=== PATIENT | female | born 1980 | race Caucasian/White ===

== ENCOUNTER 2019-12-28 08:37 | Outpatient (CLI) | payer BC, SELFPAY ==
--- NOTE | 2019-12-28 08:58 | FL_ITS ---
WS: [id number] DOUBLE CONTRAST UPPER GI EXAMINATION HISTORY: DYSPHAGIA COMPARISON: None available. FLUOROSCOPY TIME: 2.5 minutes. Lead Burner Apprentice film reveals normal distribution of gas throughout the GI tract. No suspicious masses or calcif ications. Barium mixture traversed normally throughout the esophagus. No filling defects within the stomach. Du odenal bulb was normally distensible and pliable. Moderate amount of gastroesophageal reflux was noted to the renzo. Small hiatal hernia was reducible. FL/[place] upper GI [place] air [id number] IMPRESSION: 1. Gastroesophageal reflux to the renzo. 2. Small reducible hiatal hernia.
== END 2019-12-28 08:38 | disposition home or self-care (01) ==
PROVIDERS: Family Provider Nurse Practitioner; PCP Nurse Practitioner; Visit Provider Surgery
DX: K21.9 Gastro-esophageal reflux disease without esophagitis (principal); K44.9 Diaphragmatic hernia without obstruction or gangrene; R13.10 Dysphagia, unspecified
CPT/HCPCS: 74246

== ENCOUNTER 2020-01-17 08:29 | Day surgery (SDC) | payer BC, SELFPAY ==
[2020-01-17 09:12] VITALS: BP 129/85; PULSE 61; RESP 16; TEMP 36.6; O2SAT 100
[2020-01-17] MEDS: sodium chloride 0.9% 1,000 ML 30 ML (09:18)
--- NOTE | 2020-01-17 09:20 | W.PM.OPSUD ---
Surgery/Procedure H&P Update DATE OF PROCEDURE: January 17, 2020 DATE H&P PERFORMED: 01/04/20 H&P UPDATE INFORMATION: I have reviewed H&P completed within last 30 days, I have examined patient prior to procedure and No changes to prior documentation PREOP DIAGNOSIS: Persistent GERD PRIMARY INDICATION FOR PROCEDURE: The same PLANNED PROCEDURE: Operation Date: 01/17/20 10:00 Proposed Procedures p EGD(Not Applicable) - Jarad Chawla MD
--- NOTE | 2020-01-17 11:05 | P.ANESASSM_ITS ---
Pre-Anesthetic Assessment Pre-Anesthetic Assessment: Height/Weight: Height 1.63 m Weight 79.379 kg Temp Pulse Resp BP Pulse Ox 97.9 F 61 16 129/85 100 01/17/20 09:12 01/17/20 09:12 01/17/20 09:12 01/17/20 09:12 01/17/20 09:12 Preop Diagnosis: Persistent GERD Proposed Procedure: Operation Date: 01/17/20 10:00 Proposed Procedures p EGD(Not Applicable) - Jarad Chawla MD Was Beta Ty taken within 24 hours: N/A Last intake: Intake Last Liquid Date 01/16/20 Last Liquid Time 21:00 Last Solid Date 01/16/20 Last Solid Time 18:00 Last Intake: 21:00 Social: Social History: No alcohol and No tobacco Exam: Pre-Anes Outpt Exam: alert, oriented x 3, clear to auscultation bilaterally and regular rate & rhythm Airway: Submandibular: WNL Cervical ROM: WNL MP: 2 Dentition: Full Pulmonary: Pulmonary: None reported CV/HEM: CV/HEM: None reported : : None reported Hepatic: Hepatic: None reported GI: GI: GERD Metabolic: Metabolic: None reported Musc/skel: Musc/skel: None reported Neuropsych: Neuropsych: None reported Anesthetic Plan: ASA status: 1 Anesthesia: Anesthesia Evaluation and MAC Risk of > 500 ml blood loss (7ml/kg in children): No PFSH Anesthesia PFSH: Social History Smoking and tobacco status: never smoked Second hand smoke exposure: No Alcohol intake: never Adopted: No Caregiver/support person: Yes Lives independently: Yes Household members: spouse Housing: House Marital status: Number of children: 0 Highest education level completed: High School Graduate service: No Current occupational status: employed 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
[2020-01-17 11:22] LABS: OR HCG Qualitative Urine Negative (Negative)
[2020-01-17 12:25] VITALS: BP 107/75; PULSE 90; RESP 16; TEMP 36.4; O2SAT 98
--- NOTE | 2020-01-17 12:28 | ANE.PACU2 ---
 Inpatient post-anesthesia follow up: Airway intact: Yes Vital signs: Temperature 97.9 F Pulse Rate 61 Respiratory Rate 16 Blood Pressure 129/85 Pulse Oximetry 100 Oxygen Delivery Me thod Room Air Oxygen Flow Rate Fraction of Inspir ed Oxygen Hydration adequate: Yes Nausea and vomiting: No Pain level: 1 Mental status: Baseline
[2020-01-17 12:40] VITALS: BP 117/77; PULSE 63; RESP 18; O2SAT 97
[2020-01-18 05:38] LABS: H. Pylori / CLO Test Negative
== END 2020-01-17 12:54 | disposition home or self-care (01) ==
PROVIDERS: Family Provider Nurse Practitioner; PCP Nurse Practitioner; Visit Provider Surgery
PROC: 0DJ08ZZ Inspection of Upper Intestinal Tract, Via Natural or Artificial Opening Endoscopic (ICD-10-PCS; CPT 43235; principal; 2020-01-17 10:00)
DX: K21.9 Gastro-esophageal reflux disease without esophagitis (principal); K44.9 Diaphragmatic hernia without obstruction or gangrene; K29.70 Gastritis, unspecified, without bleeding; E66.01 Morbid (severe) obesity due to excess calories; Z68.30 Body mass index [BMI] 30.0-30.9, adult; E78.5 Hyperlipidemia, unspecified
CPT/HCPCS: 12345; 43239; 81025; 84703; 87077; J2704; J7030

== ENCOUNTER → 2020-02-06 14:25 | Outpatient (BNVA) | payer BC, SELFPAY | PROVIDERS: Family Provider Nurse Practitioner; PCP Nurse Practitioner; Visit Provider Nurse Practitioner Women's Health | DX: E28.2 Polycystic ovarian syndrome (principal) | CPT/HCPCS: 84702 ==

== ENCOUNTER → 2020-05-07 08:35 | Outpatient (BNVA) | payer BC, SELFPAY | PROVIDERS: Family Provider Nurse Practitioner; PCP Nurse Practitioner; Visit Provider Nurse Practitioner Women's Health | DX: E28.2 Polycystic ovarian syndrome (principal) | CPT/HCPCS: 81025; 88175 ==

== ENCOUNTER → 2020-12-02 16:07 | Outpatient (BNVA) | payer BC, SELFPAY | PROVIDERS: Family Provider Nurse Practitioner; PCP Nurse Practitioner; Visit Provider Nurse Practitioner Family | DX: Z20.828 Contact with and (suspected) exposure to other viral communicable diseases (principal); J06.9 Acute upper respiratory infection, unspecified | CPT/HCPCS: 87635 ==

== ENCOUNTER → 2021-06-25 15:19 | Outpatient (BNVA) | payer SELFPAY | PROVIDERS: Family Provider Nurse Practitioner; PCP Nurse Practitioner; Visit Provider Nurse Practitioner Women's Health | DX: Z01.419 Encounter for gynecological examination (general) (routine) without abnormal findings (principal); Z12.39 Encounter for other screening for malignant neoplasm of breast; E28.2 Polycystic ovarian syndrome | CPT/HCPCS: 88175 ==

== ENCOUNTER 2021-08-08 07:36 | Outpatient (CLI) | payer BC, SELFPAY ==
--- NOTE | 2021-08-08 08:00 | MM_ITS ---
WS: [id number] BILATERAL SCREENING DIGITAL MAMMOGRAM WITH CAD HISTORY: Z12.39 - Encounter for other screening for malignant neoplasm... COMPARISON: None available. Bilateral CC and MLO views submitted. Computer aided detection analyzed. Breast composition: There are scattered areas of fibroglandular density. No suspicious masses, microc alcifications or architectural distortion. MM/[place] [id number] IMPRESSION: BI-RADS: 1-Negative FOLLOW UP: 1 Year Follow-up
== END 2021-08-08 07:37 | disposition home or self-care (01) ==
LOC: RADSHAW 07:42
PROVIDERS: Visit Provider Nurse Practitioner Women's Health
DX: Z12.31 Encounter for screening mammogram for malignant neoplasm of breast (principal)
CPT/HCPCS: 77067

== ENCOUNTER 2022-08-12 09:00 | Outpatient (CLI) | payer OTHER, SELFPAY ==
--- NOTE | 2022-08-12 09:21 | MM_ITS ---
WS: [id number] BILATERAL SCREENING DIGITAL TOMOSYNTHESIS MAMMOGRAM WITH CAD HISTORY: Screening. COMPARISON: 08/08/2021 Bilateral CC and MLO views with tomosynthesis and synthetic mammography submitted. Computer aided det ection analyzed. Breast composition: There are scattered areas of fibroglandular density. No suspicious masses, microc alcifications or architectural distortion. Curvilinear asymmetry in the anterior medial LEFT breast j ust below the nipple line is reidentified. No interval change. MM/[place] [id number] IMPRESSION: BI-RADS: 2-Benign FOLLOW UP: 1 Year Follow-up
== END 2022-08-12 09:01 | disposition home or self-care (01) ==
LOC: RAD 09:00
PROVIDERS: Visit Provider Nurse Practitioner Women's Health
DX: Z12.31 Encounter for screening mammogram for malignant neoplasm of breast (principal)
CPT/HCPCS: 77063; 77067

== ENCOUNTER → 2022-11-18 09:24 | Outpatient (BNVA) | payer OTHER, SELFPAY | PROVIDERS: Visit Provider Family Medicine | DX: Z00.00 Encounter for general adult medical examination without abnormal findings (principal) | CPT/HCPCS: 80053; 80061; 85025 ==

== ENCOUNTER 2023-01-22 12:05 | Emergency (ER) | payer OTHER, SELFPAY ==
[2023-01-22 12:10] VITALS: BMI 43.4
[2023-01-22 12:16] VITALS: BP 140/84; PULSE 70; RESP 18; TEMP 36.8; O2SAT 98
--- NOTE | 2023-01-22 12:37 | ECG_ITS ---
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 Measurements Intervals [place] Rate: 66 P: 43 AR: 139 QRS: 84 QRSD: 86 T: 50 QT: 410 QTc: 431 Interpretive Statements SINUS RHYTHM WITH SINUS ARRHYTHMIA LOW QRS VOLTAGE IN PRECORDIAL LEADS [QRS DEFLECTION < 1.0 mV IN CHEST LEADS] No previous ECG available for comparison Electronically Signed On 01-22-2023 16:50:01 [employer] by Russell Sierra M.D. [id number]
--- NOTE | 2023-01-22 12:37 | CT_ITS ---
WS: [id number] CT HEAD TECHNIQUE: Noncontrast CT of the head obtained from the skullbase to the vertex. CLINICAL INFORMATION: Symptoms of acute stroke COMPARISON: None. DLP: [id number] scans at [facility] use at least one of these dose optimization techniques: automated e xposure control; mA and/or kV adjustment per patient size (includes targeted exams where dose is matc hed to clinical indication); or iterative reconstruction. FINDINGS: No evidence of intracranial hemorrhage or mass effect. Ventricular system and basal cisterns are hyde nt. No extra-axial fluid collections. No evidence of mass or mass effect. Normal flores-white different iation. Paranasal sinuses and mastoid air cells are well aerated. .Normal visualized soft tissues. CT/CT head thrombolytic [id number] IMPRESSION: 1. No evidence of intracranial hemorrhage or mass effect. 2. No acute intracranial findings.
[2023-01-22 12:51] LABS: Basophils % 0.5 %; Eosinophils # 0.2 10^3/uL (0.0-0.8); Hematocrit 39.2 % (37.0-47.0); Hemoglobin 12.6 g/dL (11.5-15.3); Lymphocytes # 3.2 10^3/uL (0.8-4.8); Lymphocytes % 37.2 %; Mean Corpuscular HGB Conc 32.1 g/dL (30.0-36.0); Mean Corpuscular Hemoglobin 29.2 pg (28.0-34.0); Mean Corpuscular Volume 90.7 fl (81-99); Mean Platelet Volume 9.5 fL (7.4-10.4); Monocytes # 0.6 10^3/uL (0.2-0.9); Monocytes % 6.8 %; Neutrophils # 4.58 10^3/uL (1.8-7.7); Neutrophils % 53.3 %; Nucleated Red Blood Cells % 0 %; Platelet Count 341 10^3/cmm (130-400); Red Blood Count 4.32 10^6/uL (4.1-5.3); Red Cell Distribution Width 12.5 % (12.1-15.1); White Blood Count 8.6 10^3/uL (4.0-10.0)
[2023-01-22 12:58] LABS: INR 0.89 (0.8-1.2)
[2023-01-22 13:00] LABS: Alanine Aminotransferase 21 U/L (0-33); Albumin Level 4.2 g/dL (3.5-5.2); Alkaline Phosphatase 77 U/L (35-105); Blood Urea Nitrogen 9 mg/dL (6-20); Carbon Dioxide 23 mmol/L (22-29); Chloride 101 mmol/L (98-107); Glomerular Filtration Rate 90.9 mL/min (90-130); Glucose 90 mg/dL (65-115); Osmolality Calculated 278 mOsm/kg (285-295); Sodium 135 mmol/L (136-145); Total Bilirubin 0.2 mg/dL (0.15-1.2); Total Protein 7.2 g/dL (6.6-8.7)
[2023-01-22 13:16] VITALS: BP 165/106; PULSE 82; RESP 20; O2SAT 100
[2023-01-22 13:20] LABS: Glucose Point of Care 78 mg/dL (70-110)
[2023-01-22 13:25] LABS: Anion Gap 15.2 (5-19); Aspartate Amino Transferase 22 U/L (0-32); Potassium 4.2 mmol/L (3.5-5.1)
--- NOTE | 2023-01-22 13:29 | W.ED.NEUROSD ---
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 She has facial numbness as well no other difficulty no difficulty speech gait or swallowing or vision. No weakness in the arms hands feet. Onset (ago): minute(s) Location: left face History of same: Yes Severity: mild Quality: numb Relieving factors: none Exacerbating factors: none Associated symptoms: Deny chest pain, cough, diaphoresis, fevers/chills, headache(s), anorexia, malaise, nausea, seizures, short of breath, syncope, tingling, vertigo, vomiting or weakness Treatments Prior to Arrival: none Review of Systems Const: Denies: fever(s), chills, fatigue, malaise or diaphoresis ENMT: Denies: throat pain, ear or mastoid pain, nasal discharge or nasal congestion Card: Denies: chest pain or syncope Resp: Denies: dyspnea, productive cough or non-productive cough GI: Denies: abdominal pain, nausea or vomiting : Denies: flank pain, difficulty voiding, dysuria, urinary frequency or urinary urgency Skin/Breast: Denies: rash or pruritus Neuro: Denies: headache(s) or vertigo PFS ED PFSH: Medical History GERD (gastroesophageal reflux disease) Hiatal hernia Morbid obesity PCOS (polycystic ovarian syndrome) Sleep apnea Surgical History History of esophagogastroduodenoscopy (EGD) Family History Grandfather Heart disease Paternal Cancer paternal- lung/esophageal Grandmother Stroke Paternal Diabetes Maternal Mother Hypertension Denies family history of Colon cancer Ovarian cancer Hyperlipidemia Breast cancer Uterine cancer Thyroid disease Social History Smoking and tobacco status: never smoked Alcohol intake: never Lives independently: Yes Household members: children Marital status: Single Current occupational status: employed 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 [employer] NIH stroke score NIHSS: Level Of Consciousness - 1a: 0 Level Of Consciousness Questions - 1b: Both Correct Level Of Consciousness Commands - 1c: Both Correct Best Gaze - 2: Normal Visual [place] - 3: No Visual Loss Facial Palsy - 4: Normal Motor Arm Right - 5: No Drift Motor Arm Left - 5: No Drift Motor Leg Right - 6: No Drift Motor Leg Left - 6: No Drift Limb Ataxia - 7: Absent Sensory - 8: Normal Best Language - 9: No Aphasia Dysarthia - 10: Normal Extinction And Inattention - 11: 0 Score: Total Score: 0 Physical Exam Const: GENERAL APPEARANCE: cooperative and comfortable ORIENTATION/CONSCIOUSNESS: Yes awake, Yes oriented to person, Yes oriented to place and Yes oriented to time HENMT: COMMON NORMALS: normocephalic, atraumatic and hearing grossly normal bilaterally HEAD & SCALP: normocephalic and atraumatic Resp: COMMON NORMALS: normal respiratory effort, No retractions, No use of accessory muscles and clear to auscultation bilaterally AUSCULTATION: clear to auscultation bilaterally Cardio: COMMON NORMALS: regular rate, regular rhythm and No murmurs present (Cardio) RATE: regular rate RHYTHM: regular rhythm GI: COMMON NORMALS: Soft to palpation and No hepatosplenomegaly present AUSCULTATION: Yes normoactive bowel sounds PALPATION: Yes Soft to palpation, No Tenderness to palpation present (GI), No Guarding due to palpation present (GI) and Yes No hepatosplenomegaly present Extremity: COMMON NORMALS: normal to inspection, capillary refill normal, no clubbing, cyanosis or edema, no calf tenderness and no pedal edema Neuro: SENSORIUM/ORIENTATION: Yes oriented to person, Yes oriented to place and Yes oriented to time Skin: COMMON NORMALS: no rashes or lesions noted GENERAL SKIN EXAM: no rashes or lesions noted Course Vital Signs: Vital signs: Vital Signs Temperature 98.2 F 01/22/23 12:16 Pulse Rate 75 01/22/23 15:10 Respiratory Rate 15 01/22/23 15:10 Blood Pressure 137/84 01/22/23 15:10 Pulse Oximetry 98 01/22/23 15:10 Oxygen Delivery Me thod 01/22/23 12:16 MDM - Neuro Symptoms/Deficit Medical Decision Making Patient has no focal neurologic deficits even when I test her for light touch or sharp touch on her face she only has a minor difference in it only in the face on the left side she has no other signs suggestive of a Gunn's palsy, or other facial nerve neuropathy. Discharge patient home follow-up with primary care if symptoms worsen or change return. Medical Records I reviewed the patient's medical records. Lab Data I reviewed the patient's lab results. 01/22/23 12:29 01/22/23 12:[address] 01/22/23 12:37 IMPRESSION: 1. No evidence of intracranial hemorrhage or mass effect. 2. No acute intracranial findings. Laboratory Results WBC 8.6 10^3/uL (4.0-10.0) 01/22/23 12:29 RBC 4.32 10^6/uL (4.1-5.3) 01/22/23 12:29 Hgb 12.6 g/dL (11.5-15.3) 01/22/23 12:29 Hct 39.2 % (37.0-47.0) 01/22/23 12: MCV 90.7 fl (81-99) 01/22/23 12: MCH 29.2 pg (28.0-34.0) 01/22/23 12: MCHC 32.1 g/dL (30.0-36.0) 01/22/23 12:29 RDW 12.5 % (12.1-15.1) 01/22/23 12:29 Plt Count 341 10^3/cmm (130-400) 01/22/23 12: MPV 9.5 fL (7.4-10.4) 01/22/23 12: Neut % (Auto) 53.3 % 01/22/23 12: Lymph % (Auto) 37.2 % 01/22/23 12: [place] % (Auto) 6.8 % 01/22/23 12: Eos % (Auto) 2.0 % 01/22/23 12:29 Baso % (Auto) 0.5 % 01/22/23 12: Neut # (Auto) 4.58 10^3/uL (1.8-7.7) 01/22/23 12: Lymph # (Auto) 3.2 10^3/uL (0.8-4.8) 01/22/23 12: [place] # (Auto) 0.6 10^3/uL (0.2-0.9) 01/22/23 12: Eos # (Auto) 0.2 10^3/uL (0.0-0.8) 01/22/23 12: Baso # (Auto) 0.0 10^3/uL (0.0-0.1) 01/22/23 12: Nucleated RBC % (auto) 0 % 01/22/23 12: Nucleated RBCs # 0.0 /100WBC 01/22/23 12: PT 12.30 SECONDS (12.1-14.9) 01/22/23 12: INR 0.89 (0.8-1.2) 01/22/23 12: APTT 25.0 SECONDS (23.9-36.7) 01/22/23 12: Sodium 135 mmol/L (136-145) L 01/22/23 12: Potassium 4.2 mmol/L (3.5-5.1) 01/22/23 12: Chloride 101 mmol/L (98-107) 01/22/23 12: Carbon Dioxide 23 mmol/L (22-29) 01/22/23 12: Anion Gap 15.2 (5-19) 01/22/23 12: BUN 9 mg/dL (6-20) 01/22/23 12: Creatinine 0.7 mg/dL (0.5-0.9) 01/22/23 12: GFR Calculation 90.9 mL/min (90-130) 01/22/23 12:29 Glucose 90 mg/dL (65-115) 01/22/23 12: POC Glucose 78 mg/dL (70-110) 01/22/23 13:16 Calculated Osmolality 278 mOsm/kg (285-295) L 01/22/23 12:29 Calcium 9.0 mg/dL (8.5-10.5) 01/22/23 12:29 Total Bilirubin 0.2 mg/dL (0.15-1.2) 01/22/23 12:29 AST 22 U/L (0-32) 01/22/23 12:29 ALT 21 U/L (0-33) 01/22/23 12:29 Alkaline Phosphatase 77 U/L (35-105) 01/22/23 12:29 Total Protein 7.2 g/dL (6.6-8.7) 01/22/23 12:29 Albumin 4.2 g/dL (3.5-5.2) 01/22/23 12:29 Globulin 3.0 g/dL (1.3-4.6) 01/22/23 12:29 Urine Color Straw (Yellow) 01/22/23 13:30 Urine Appearance Clear (CLEAR) 01/22/23 13:30 Urine pH 6.5 (5-7) 01/22/23 13:30 Ur Specific [place] 1.010 (1.005-1.030) 01/22/23 13:30 Urine Protein Neg (Negative) 01/22/23 13:30 Urine Glucose (UA) Norm (Normal) 01/22/23 13:30 Urine Ketones Negative (Negative) 01/22/23 13:30 Urine Blood Neg (Negative) 01/22/23 13:30 Urine Nitrate Negative (Negative) 01/22/23 13:30 Urine Bilirubin Neg (Negative) 01/22/23 13:30 Urine Urobilinogen Norm mg/dL (Negative) 01/22/23 13:30 Ur Leukocyte Esterase Negative (Negative) 01/22/23 13:30 Urine Opiates Screen Negative ng/mL (Negative) 01/22/23 13:30 Ur Barbiturates Screen Negative ng/mL (Negative) 01/22/23 13:30 Ur Phencyclidine Scrn Negative ng/mL (Negative) 01/22/23 13:30 Ur Amphetamines Screen Negative ng/mL (Negative) 01/22/23 13:30 U Benzodiazepines Scrn Negative ng/mL (Negative) 01/22/23 13:30 Urine Cocaine Screen Negative ng/mL (Negative) 01/22/23 13:30 U Marijuana (THC) Screen Negative ng/mL (Negative) 01/22/23 13:30 Discharge Plan Discharge Patient Disposition: Home Clinical Impression: Headache, variant migraine Condition: Stable Prescriptions: No Action norethindrone-e.estradiol-iron [June12/18 (28)] 1 mg-20 mcg (21)/75 mg (7) tablet 1 tab PO QDAY Qty: 84 3RF amoxicillin 500 mg tablet 500 mg PO BID 10 Days Qty: 20 0RF omeprazole 40 mg capsule,delayed release(DR/EC) 40 mg PO DAILY 90 Days Qty: 90 0RF Discharge Orders: Discharge ED (Routine); Ordered 01/22/23 Ordered By: Jim Brown Referrals: Janette Palacio MD [Primary Care Provider] - Discharge Diet: Usual diet Discharge Activity: Resume usual activity Patient Instructions: Opioid Safety, Pain Management Activity Restrictions/Additional Instructions: You were seen today for headache with left-sided facial numbness. Suspect is a migraine variant CT of the head was negative. Be discharged home follow-up with your primary care provider if you have any worsening or changes symptoms Coding Level of Care Code ED Assistant Program Manager for Jose A Galindo
[2023-01-22 13:30] VITALS: BP 131/84; PULSE 77; RESP 19; O2SAT 99
[2023-01-22 14:00] VITALS: BP 133/101; PULSE 71; RESP 15; O2SAT 99
[2023-01-22 14:07] LABS: Add Urine Microscopic? NO; Charge for UA Resulting for Rev
[2023-01-22 14:17] LABS: Bilirubin Urine Neg (Negative); Blood Urine Neg (Negative); Glucose Urine UA Norm (Normal); Ketones Urine Negative (Negative); Leukocyte Esterase Urine Negative (Negative); Nitrate Urine Negative (Negative); Protein Urine Neg (Negative); Urine Appearance Clear (CLEAR); Urine Color Straw (Yellow); Urobilinogen Urine Norm (Negative); pH Urine 6.5 (5-7)
[2023-01-22 14:21] LABS: Amphetamines Screen Urine Negative (Negative); Barbiturates Screen Urine Negative (Negative); Benzodiazepines Screen Urine Negative (Negative); Cocaine Screen Urine Negative (Negative); Opiate Screen Urine Negative (Negative); PCP Screen Urine Negative (Negative); THC Screen Urine Negative (Negative)
[2023-01-22 14:30] VITALS: BP 137/84; PULSE 75; RESP 15; O2SAT 98
[2023-01-22] MEDS: ketorolac 30 mg/mL INJ IVP (15:06)
[2023-01-22 15:10] VITALS: BP 137/84; PULSE 75; RESP 15; O2SAT 98
== END 2023-01-22 15:11 | disposition home or self-care (01) ==
PROVIDERS: Emergency Provider Family Medicine; PCP Family Medicine
DX: G43.809 Other migraine, not intractable, without status migrainosus (principal)
CPT/HCPCS: 36416; 70450; 80053; 80306; 81003; 82962; 85025; 85610; 85730; 93005; 96374; 99285; J1885

== ENCOUNTER → 2023-05-19 08:09 | Outpatient (BNVA) | payer OTHER, SELFPAY | PROVIDERS: PCP Family Medicine; Visit Provider Family Medicine | DX: R63.5 Abnormal weight gain (principal) | CPT/HCPCS: 83036; 84439; 84443; 84481 ==

== ENCOUNTER 2024-07-26 14:14 | Outpatient (CLI) | payer SELFPAY | END 2024-07-26 14:15 | disposition home or self-care (01) | LOC: SLEEP 08-02 15:32 | PROVIDERS: PCP Family Medicine; Visit Provider Family Medicine | DX: E66.01 Morbid (severe) obesity due to excess calories (principal); E28.2 Polycystic ovarian syndrome; R61 Generalized hyperhidrosis | CPT/HCPCS: 80053; 83036; 84439; 84443; 84481 ==

== ENCOUNTER → 2024-08-04 10:58 | Outpatient (BNVA) | payer SELFPAY | PROVIDERS: PCP Family Medicine; Referring Provider Family Medicine; Visit Provider Family Medicine | DX: E66.01 Morbid (severe) obesity due to excess calories (principal) | CPT/HCPCS: 80061 ==

== ENCOUNTER 2024-09-06 14:55 | Outpatient (CLI) | payer BC, SELFPAY ==
--- NOTE | 2024-09-06 15:00 | MM_ITS ---
WS: [id number] BILATERAL 3D TOMOSYNTHESIS DIGITAL SCREENING MAMMOGRAPHY WITH CAD CLINICAL INFORMATION: Z12.31 - Encounter for screening mammogram for malignant ... HISTORY: Screening mammogram. No current complaints. COMPARISON: 2021 TECHNIQUE: Bilateral CC and MLO views. FINDINGS: Scattered fibroglandular densities bilaterally. No suspicious focal mass, asymmetry, calcifications, or architectural distortion. No evidence of malignancy. MM/MM scr tomosynthesis [id number] IMPRESSION: DENSITY: There are scattered areas of fibroglandular density. BI-RADS: 1 - Negative. FOLLOW UP: 1 Year Follow-up Recommend return to annual screening mammography.
== END 2024-09-06 14:56 | disposition home or self-care (01) ==
LOC: RAD 14:56
PROVIDERS: PCP Family Medicine; Visit Provider Nurse Practitioner Women's Health
DX: Z12.31 Encounter for screening mammogram for malignant neoplasm of breast (principal)
CPT/HCPCS: 77063; 77067

== ENCOUNTER 2024-10-04 16:52 | Outpatient (CLI) | payer BC, SELFPAY | END 2024-10-04 16:53 | disposition home or self-care (01) | LOC: SLEEP 16:54 | PROVIDERS: PCP Family Medicine; Visit Provider Family Medicine | DX: G47.33 Obstructive sleep apnea (adult) (pediatric) (principal); G47.36 Sleep related hypoventilation in conditions classified elsewhere | CPT/HCPCS: G0399 ==